=== PATIENT | female | born 1985 | race Caucasian/White ===

== ENCOUNTER 2019-04-11 02:37 | Emergency (ER) | payer OTHER ==
[~2019-04-11] VITALS: Ht 167.6 cm; Wt 99.8 kg
--- NOTE | 2019-04-11 02:55 | NUR ---
PT BIBRA FROM BAR +ETOH. PT OPENS EYES TO PAINFUL STIMULI. 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 VITAL SIGNS STABLE. NO ACUTE DISTRESS NOTED AT THIS TIME. PLACED ON CONTINUOUS IMPORTER OR EXPORTER AND PULSE OX. WILL CONTINUE TO MONITOR
[2019-04-11] MEDS ORDERED: ONDANSETRON HCL/PF 4 MG/2 ML VIAL ONE (02:56)
[2019-04-11] MEDS ORDERED: IV NS 0.9% 1,000 ML BAG IV ONE (03:00)
[2019-04-11] MEDS ORDERED: ONDANSETRON HCL/PF 4 MG/2 ML VIAL IVP ONE (03:00)
--- NOTE | 2019-04-11 03:02 | NUR ---
IV INITIATED R AC 18G. LABS DRAWN FROM SITE. CONCRETE BATCHER AT BEDSIDE FOR COLLECTION. IV INTACT AND PATENT, PLACED ON SALINE LOCK
[2019-04-11 03:13] LABS: BASOPHILS # (AUTO) 0.1 /CMM (0.0-0.2); EOSINOPHILS % (AUTO) 1.8 % (0.0-6.0); HEMATOCRIT 40 % (33-45); HEMOGLOBIN 13.4 g/dL (11.5-14.8); LYMPHOCYTES # (AUTO) 5.9 /CMM (0.8-4.8); MEAN CORPUSCULAR HGB CONC 34 g/dl (31.0-36.0); MEAN CORPUSCULAR VOLUME 88 fL (82-100); MONOCYTES % (AUTO) 8.2 % (2.0-12.0); NEUTROPHILS # (AUTO) 5.2 /CMM (1.8-8.9); PLATELET COUNT (AUTO) 351 /CMM (150-450); RED BLOOD CELL COUNT(AUTO) 4.53 MIL/uL (4.0-5.2); WHITE BLOOD COUNT (AUTO) 12.5 K/uL (4.3-11.0)
--- NOTE | 2019-04-11 03:23 | NUR ---
FRIEND AT BEDSIDE. PER FRIEND, DENIES ANY TRAUMA. STATES "SHE JUST HAD TOO MUCH TO DRINK TONIGHT"
[2019-04-11 03:27] LABS: CALCIUM, SERUM 8.9 mg/dL (8.5-10.1); CREATININE 0.6 mg/dL (0.6-1.3); POTASSIUM 3.3 mmol/L (3.5-5.1)
[2019-04-11 03:32] LABS: ALBUMIN 3.7 g/dL (3.4-5.0); BILIRUBIN,DIRECT 0.1 mg/dL (0.0-0.2); BILIRUBIN,TOTAL 0.1 mg/dL (0.2-1.0); TOTAL PROTEIN, SERUM 8.5 g/dL (6.4-8.2)
[2019-04-11 03:33] LABS: ALCOHOL, BLOOD 509 mg/dL (0-0)
--- NOTE | 2019-04-11 04:26 | NUR ---
PT RESTING COMFORTABLY IN BED. VITAL SIGNS STABLE. STILL ON CONTINUOUS CORPORATE COUNSEL AND PULSE OX. WILL CONTINUE TO MONITOR.
--- NOTE | 2019-04-11 05:36 | NUR ---
PT AWAKE, [id number]. VITAL SIGNS STABLE. ABLE TO AMBULATE TO RESTROOM WITH ASSISTANCE.
--- NOTE | 2019-04-11 06:20 | NUR ---
SPOKE WITH PT'S FRIEND. STATES HE WILL COME TO ENTRY WRITER PT WITHIN AN HOUR
--- NOTE | 2019-04-11 07:12 | NUR ---
PT'S FRIEND CAME TO LITIGATION COORDINATOR PT. PT [id number]. Patient discharged to home in stable condition. Written and verbal after care instructions given. Patient verbalizes understanding of instruction. IV removed. Catheter intact and site benign. Pressure and 4x4 applied to site. No bleeding noted. Pt ambulatory with a steady gait
[2019-04-11 07:14] VITALS: BP 129/81
== END 2019-04-11 07:15 | disposition home or self-care (01) ==
LOC: ER 02:39
DX: F10.129 Alcohol abuse with intoxication, unspecified (principal); R11.10 Vomiting, unspecified; R74.0 Nonspecific elevation of levels of transaminase and lactic acid dehydrogenase [LDH]; E66.9 Obesity, unspecified; Y90.8 Blood alcohol level of 240 mg/100 ml or more
CPT/HCPCS: 36415; 80048; 80076; 80307; 83690; 84702; 85025; 96361; 96374; 99283; J2405; J7030; G0480